=== PATIENT | female | born 1935 | race Two or more races ===

== ENCOUNTER 2018-05-05 10:20 | Outpatient (CLI) | payer OTHER | END 2018-05-05 14:41 | disposition home or self-care (01) | LOC: NUCLEAR 10:20 | DX: M81.0 Age-related osteoporosis without current pathological fracture (principal) ==

== ENCOUNTER 2019-04-25 12:20 | Outpatient (CLI) | payer OTHER | END 2019-04-25 14:15 | disposition home or self-care (01) | LOC: RAD 12:20 | DX: M54.5 Low back pain (principal) ==

== ENCOUNTER 2021-02-13 14:13 | Outpatient (CLI) | payer OTHER | END 2021-02-13 14:23 | disposition home or self-care (01) | LOC: RAD 14:13 | PROVIDERS: ATTEND Internal Medicine Sports Medicine | DX: M25.522 Pain in left elbow (principal) ==

== ENCOUNTER 2024-10-06 10:07 | Outpatient (CLI) | payer OTHER ==
[~2024-10-06 10:07] MED LIST: MOBIC7.5 MG PO
== END 2024-10-06 10:08 | disposition home or self-care (01) ==
LOC: NUCLEAR 10:07
PROVIDERS: ATTEND Internal Medicine Sports Medicine
DX: R55 Syncope and collapse (principal)